=== PATIENT | female | born 1945 | race Caucasian/White ===

== ENCOUNTER → 2016-11-19 | Outpatient (CLI) | payer MEDICARE ==
--- NOTE | 2016-11-19 15:26 | RADRPT ---
EXAM DATE/TIME: 11/19/2016 00:00 [place] COMPARISON: No previous studies available for comparison. INDICATIONS : Intermitten Claudication TECHNIQUE: Five-station segmental examination of the lower extremities was performed pre and post extercise. Pulsed-cuff waveform tracings and pressures were recorded. Ankle-brachial indices and toe-brachial indices were calculated. PRESSURES (mmHg): Pre Exercise: Brachial (arm): Right 165 Left 175 Lower Thigh: Right 192 Left 168 Calf: Right 185 Left 156 Ankle: Right 203 Left 198 ROCIO: Right 1.16 Left 1.13 TBI: Right 0.77 Left 0.83 Post Exercise: Brachial (arm): Left 235 Ankle: Right 213 Left 210 PULSED CUFF WAVEFORMS: Demonstrate normal amplitude bilaterally. CONCLUSION: Unremarkable segmental evaluation of the lower extremities. Checo Daily MD on November 19, 2016 at 15:24 Board Certified Radiologist. This report was verified electronically.
== END ==
LOC: HCAV 12:18
DX: I70.219 Atherosclerosis of native arteries of extremities with intermittent claudication, unspecified extremity (principal)
CPT/HCPCS: 93924